=== PATIENT | female | born 1940 | race Two or more races ===

== ENCOUNTER 2019-05-11 17:32 | Inpatient (IN) | payer MEDICARE ==
[~2019-05-11] VITALS: Ht 154.9 cm; Wt 65.8 kg
[2019-05-11] MEDS ORDERED: ONDANSETRON HCL 4MG/2ML INJ IV STA (18:18)
[2019-05-11] MEDS ORDERED: MORPHINE SULFATE 4 MG/ML CPJ (NOT FOR IM USE) IV STA ×2 (18:18→20:20)
[2019-05-11] MEDS ORDERED: SODIUM CHLORIDE 0.9% 1,000 ML IV ONE (18:18)
[2019-05-11] MEDS ORDERED: HYDRALAZINE 20MG/ML VIAL IV ONE (18:30)
[2019-05-11 18:45] LABS: CLARITY URINE CLEAR (CLEAR); COLOR URINE YELLOW (YELLOW); KETONES URINE TRACE (NEGATIVE); LEUKOCYTE ESTERASE URINE TRACE (NEGATIVE); NITRITE URINE NEGATIVE (NEGATIVE); OCCULT BLOOD URINE TRACE (NEGATIVE); PH URINE 7.5 (4.5-8.0); PROTEIN URINE 1+ (NEGATIVE); SPECIFIC GRAVITY URINE 1.013 (1.005-1.030); UROBILINOGEN URINE 0.2 E.U./dL (0.2-1.0)
[2019-05-11 18:59] LABS: *AMPHETAMINES SCREEN URINE NEGATIVE (NEGATIVE); *BARBITURATES SCREEN URINE NEGATIVE (NEGATIVE); *BENZODIAZEPINES SCREEN URINE NEGATIVE (NEGATIVE)
[2019-05-11 19:00] LABS: *COCAINE SCREEN URINE NEGATIVE (NEGATIVE); CANNABINOID URINE SCREEN PRESUMTIVE POSITIVE (NEGATIVE); METHADONE URINE SCREEN NEGATIVE (NEGATIVE); OPIATES URINE SCREEN NEGATIVE (NEGATIVE); PHENCYCLIDINE URINE SCREEN NEGATIVE (NEGATIVE)
[2019-05-11 19:31] LABS: BASOPHILS % 0.3 % (0.0-2.0); HEMATOCRIT. 41.3 % (36.0-48.0); HEMOGLOBIN. 13.3 g/dL (12.0-16.0); LYMPHOCYTES % 8.4 % (20.0-50.0); MEAN CORPUSCULAR HEMOGLOBIN 27.7 pg (28.0-32.0); MEAN CORPUSCULAR VOLUME 85.8 fL (81.0-99.0); MEAN PLATELET VOLUME 7.3 fl (7.4-10.4); NEUTROPHILS % 88.3 % (40.0-76.0); PLATELET 379 x1000/uL (130-400); RED BLOOD CELL COUNT 4.82 mill/uL (4.2-5.4)
[2019-05-11 19:37] LABS: CHLORIDE 99 mEq/L (98-107)
[2019-05-11 19:39] LABS: PARTIAL THROMBOPLASTIN TIME 26.2 sec (23.4-31.0); PROTHROMBIN TIME 10.4 sec (9.6-11.0)
[2019-05-11 19:41] LABS: ETHANOL BLOOD < 10 mg/dL
[2019-05-11] MEDS ORDERED: CEFTRIAXONE 1 G PREMIX 50 ML IV ONE (20:30)
[2019-05-11] MEDS ORDERED: METOCLOPRAMIDE HCL 10MG/2ML VIAL IV ONE (20:30)
[2019-05-11 22:08] VITALS: BP 151/89
[2019-05-11] MEDS ORDERED: OXYC-104 PO (22:24)
[2019-05-11] MEDS ORDERED: GABA (22:27)
[2019-05-11] MEDS ORDERED: GABAPENTIN (22:27)
[2019-05-11 22:32] VITALS: BP 151/89
[2019-05-11] MEDS ORDERED: ONDANSETRON HCL 4MG/2ML INJ IV PRN (22:45)
[2019-05-11] MEDS ORDERED: ACETAMINOPHEN 650MG SUPP PR PRN (22:45)
[2019-05-11] MEDS: HYDROMORPHONE HCL/PF 2MG/ML CPJ IV PRN (23:11)
[2019-05-11] MEDS: FAMOTIDINE 20MG/2ML VIAL IV SCH (23:12)
[2019-05-11] MEDS: ENOXAPARIN 40MG/0.4ML SYR SUBCUT SCH (23:13)
[2019-05-12] VITALS: BP 90/52
[2019-05-12] MEDS: DEXT 5%/0.45% NACL 1000ML 1,000 ML IV SCH ×2 (00:07→12:14)
[2019-05-12 04:00] VITALS: BP 108/64
[2019-05-12] MEDS: HYDROMORPHONE HCL/PF 2MG/ML CPJ IV PRN ×4 (06:04→20:44)
[2019-05-12 06:19] LABS: BASOPHILS % 0.2 % (0.0-2.0); HEMATOCRIT. 36.7 % (36.0-48.0); HEMOGLOBIN. 12.1 g/dL (12.0-16.0); LYMPHOCYTES % 20.6 % (20.0-50.0); MEAN CORPUSCULAR VOLUME 85.1 fL (81.0-99.0); MEAN PLATELET VOLUME 7.5 fl (7.4-10.4); MONOCYTES % 7.8 % (2.0-8.0); NEUTROPHILS % 71.4 % (40.0-76.0); PLATELET 305 x1000/uL (130-400); RED BLOOD CELL COUNT 4.31 mill/uL (4.2-5.4); RED CELL DISTRIBUTION WIDTH 14.7 % (11.6-14.6)
[2019-05-12 06:31] LABS: CHLORIDE 102 mEq/L (98-107)
[2019-05-12 08:00] VITALS: BP 136/136
[2019-05-12] MEDS: FAMOTIDINE 20MG/2ML VIAL IV SCH (09:19)
[2019-05-12 12:00] VITALS: BP 107/62
[2019-05-12] MEDS ORDERED: POTASSIUM CHLORIDE 20MEQ TABLET SR PO NR (12:00)
[2019-05-12 16:00] VITALS: BP 130/78
[2019-05-12 20:43] VITALS: BP 132/83
[2019-05-12] MEDS: ENOXAPARIN 40MG/0.4ML SYR SUBCUT SCH (22:27)
[2019-05-13] VITALS: BP 146/75
[2019-05-13] MEDS: HYDROMORPHONE HCL/PF 2MG/ML CPJ IV PRN ×4 (00:08→11:46)
[2019-05-13 04:00] VITALS: BP 143/79
[2019-05-13] MEDS: DEXT 5%/0.45% NACL 1000ML 1,000 ML IV SCH (04:26)
[2019-05-13 07:13] LABS: BASOPHILS % 0.7 % (0.0-2.0); EOSINOPHILS % 1.4 % (0.0-5.0); HEMOGLOBIN. 11.4 g/dL (12.0-16.0); LYMPHOCYTES % 30.9 % (20.0-50.0); MEAN CORPUSCULAR HEMOGLOBIN 28.3 pg (28.0-32.0); MEAN CORPUSCULAR VOLUME 86.7 fL (81.0-99.0); MONOCYTES % 7.6 % (2.0-8.0); NEUTROPHILS % 59.4 % (40.0-76.0); PLATELET 262 x1000/uL (130-400); RED BLOOD CELL COUNT 4.04 mill/uL (4.2-5.4); RED CELL DISTRIBUTION WIDTH 14.9 % (11.6-14.6)
[2019-05-13 07:17] LABS: CHLORIDE 106 mEq/L (98-107)
[2019-05-13 08:00] VITALS: BP 124/74
[2019-05-13] MEDS: FAMOTIDINE 20MG/2ML VIAL IV SCH (08:30)
[2019-05-13 10:54] VITALS: BP 124/74
== END 2019-05-13 13:10 | disposition home or self-care (01) | DRG 392 ==
LOC: ER 17:32 → 5WST 20:37 → EDBEDREQ 20:40 → EDBEDREQTM 20:40 → ENRESERV 20:44
PROVIDERS: ADMIT Hospitalist; ATTEND Hospitalist
DX: K52.9 Noninfective gastroenteritis and colitis, unspecified (principal); E86.0 Dehydration; I10 Essential (primary) hypertension; Z90.49 Acquired absence of other specified parts of digestive tract
CPT/HCPCS: 36415; 71045; 74176; 80305; 80320; 81003; 83605; 83735; 83880; 84484; 93005; 93970; 96361; 96374; 96375; 99285; J0360; J0696; J1170; J1650; J2270; J2405; J2765; J3490; J7030; G0480